=== PATIENT | male | born 1955 | race Caucasian/White ===

== ENCOUNTER 2020-12-18 20:16 | Emergency (ER) | payer OTHER ==
[2020-12-18] MEDS ORDERED: traMADol HCl 50 MG TAB ONE (21:18)
== END 2020-12-18 22:15 | disposition home or self-care (01) ==
LOC: ERS 20:16
DX: S22.41XA Multiple fractures of ribs, right side, initial encounter for closed fracture (principal); I10 Essential (primary) hypertension; Z86.73 Personal history of transient ischemic attack (TIA), and cerebral infarction without residual deficits; W18.2XXA Fall in (into) shower or empty bathtub, initial encounter
CPT/HCPCS: 94799